=== PATIENT | male | born 1955 | race Caucasian/White ===

== ENCOUNTER 2023-12-01 20:29 | Emergency (ER) | payer MEDICARE, OTHER ==
[2023-12-01 20:33] VITALS: BP 153/100; PULSE 112; RESP 20; TEMP 98.1
[2023-12-01] MEDS: GLUCAGON 1 MG/ML VIAL IVP STA (21:03)
--- NOTE | 2023-12-01 22:03 | ED ---
General Adult HPI - General Chief complaint: ENT Stated complaint: forgein object in throat Time Seen by Provider: 12/01/23 20:36 Source: patient Mode of arrival: ambulatory Limitations: no limitations - History of Present Illness Initial comments: 68-year-old male presenting with chief complaint of food stuck in his throat. 9-hour prior to arrival patient was eating steak and peppers when he felt a piece that he was unable to dislodge from his throat. He is having no difficulty breathing, however when he tries to swallow liquid is immediately spit back up. He has had 1 episode similar to this in the past, he required a scope to remove the piece of chicken. - Related Data Allergies Allergy/AdvReac Type Severity Reaction Status Date / Time No Known Allergies Allergy Verified 12/01/23 20:33 Review of Systems ROS Statement: Those systems with pertinent positive or pertinent negative responses have been documented in the HPI. ROS Other: All systems not noted in ROS Statement are negative. Past Medical History Past Medical History: No Reported History History of Any Multi-Drug Resistant Organisms: None Reported Past Surgical History: No Surgical Hx Reported Past Psychological History: No Psychological Hx Reported Smoking Status: Never smoker Past Alcohol Use History: Occasional Past Drug Use History: None Reported General Exam Limitations: no limitations General appearance: alert, in no apparent distress Head exam: Present: atraumatic, normocephalic Eye exam: Present: normal appearance, EOMI Neck exam: Present: normal inspection. Absent: meningismus Respiratory exam: Absent: respiratory distress Neurological exam: Present: alert, oriented X3 Psychiatric exam: Present: normal affect, normal mood Skin exam: Present: warm, dry Course Vital Signs 12/01/23 20:31 Temperature 98.1 F Pulse Rate 112 H Respiratory 20 Rate Blood Pressure 153/100 O2 Sat by Pulse 97 Oximetry Medical Decision Making - Medical Decision Making 68-year-old male presenting with chief complaint of food stuck in his throat. He was eating steak and peppers when he felt the foreign body. No difficulty breathing. He is able to handle his secretions. If he drinks the fluids come back up. He is given glucagon Valium and a carbonated beverage. He is also instructed to jump up and down. On reassessment the patient has been able to get up some fragments of food but still feels the foreign body sensation. We do not have GI on-call at this time. Arrangements are being set up for transfer. Patient does not want to wait for arrangements to be made. He signed out AGAINST MEDICAL ADVICE. I discussed this case with my attending Dr. Sexton Was pt. sent in by a medical professional or institution (CHRISTIAN Gutiérrez, LEAD INSTRUCTOR/FLIGHT ATTENDANT, urgent care, hospital, or correction...) When possible be specific @ -No Did you speak to anyone other than the patient for history (EMS, parent, family, police, friend...)? What history was obtained from this source @ -No Did you review nursing and triage notes (agree or disagree)? Why? @ -I reviewed and agree with nursing and triage notes Were old charts reviewed (outside hosp., previous admission, EMS record, old EKG, old radiological studies, urgent care reports/EKG's, correction records)? Report findings @ -No old charts were reviewed Differential Diagnosis (chest pain, altered mental status, abdominal pain women, abdominal pain men, vaginal bleeding, weakness, fever, dyspnea, syncope, headache, dizziness, GI bleed, back pain, seizure, CVA, palpatations, mental health, musculoskeletal)? @ -Differential includes foreign body, allergic reaction, peritonsillar abscess, lymphadenopathy, this is not an all-inclusive list EKG interpreted by me (3pts min.). @ -As above X-rays interpreted by me (1pt min.). @ -None done CT interpreted by me (1pt min.). @ -None done U/S interpreted by me (1pt. min.). @ -None done What testing was considered but not performed or refused? (CT, X-rays, U/S, labs)? Why? @ -None What meds were considered but not given or refused? Why? @ -None Did you discuss the management of the patient with other professionals (professionals i.e. CHRISTIAN Gutiérrez, LEAD INSTRUCTOR/FLIGHT ATTENDANT, lab, RT, psych nurse, outreach and education social worker, registered nurse post partum, teacher, state wildlife officer, lining caser)? Give summary @ -Spoke with Wing Baca, ED attending. Was awaiting approval by GI when the patient signed out AMA Was smoking cessation discussed for >3mins.? @ -No Was critical care preformed (if so, how long)? @ -No Were there social determinants of health that impacted care today? How? (Homelessness, low income, unemployed, alcoholism, drug addiction, transportation, low edu. Level, literacy, decrease access to med. care, [facility], rehab)? @ -No Was there de-escalation of care discussed even if they declined (Discuss DNR or withdrawal of care, Hospice)? DNR status @ -No What co-morbidities impacted this encounter? (DM, HTN, Smoking, COPD, CAD, Cance r, CVA, ARF, Chemo, Hep., AIDS, mental health diagnosis, sleep apnea, morbid obesity)? @ -None Was patient admitted / discharged? Hospital course, mention meds given and route, prescriptions, significant lab abnormalities, going to OR and other pertinent info. @ -Signed out AMA, see above for details Undiagnosed new problem with uncertain prognosis? @ -No Drug Therapy requiring intensive monitoring for toxicity (Heparin, Nitro, Insulin, Cardizem)? @ -No Were any procedures done? @ -No Diagnosis/symptom? @ -Esophageal foreign body Acute, or Chronic, or Acute on Chronic? @ -Acute Uncomplicated (without systemic symptoms) or Complicated (systemic symptoms)? @ -Uncomplicated Side effects of treatment? @ -No Exacerbation, Progression, or Severe Exacerbation? @ -No Poses a threat to life or bodily function? How? (Chest pain, [place], [place], pneumonia, PE, COPD, DKA, ARF, appy, cholecystitis, CVA, Diverticulitis, Homicidal, Suicidal, threat to staff... and all critical care pts) @ -Possible but unlikely Disposition Clinical Impression: Esophageal foreign body Disposition: LEFT AGAINST MEDICAL ADVICE Condition: Stable Referrals: Cullen Jean Baptiste DO [Primary Care Provider] - 1-2 days Time of Disposition: 22:14
== END 2023-12-01 22:14 | disposition left against medical advice (07) ==
LOC: EC 20:29
DX: T18.108A Unspecified foreign body in esophagus causing other injury, initial encounter (principal); Z53.29 Procedure and treatment not carried out because of patient's decision for other reasons; W44.F3XA Food entering into or through a natural orifice, initial encounter
CPT/HCPCS: 99283; 96374; 96375; J1610; J3360